=== PATIENT | female | born 1965 | race Caucasian/White ===

== ENCOUNTER 2025-06-30 11:13 | Outpatient (CLI) | payer MEDICAID ==
--- NOTE | 2025-06-30 15:36 | RADIOLOGY REPORT ---
Exam: MR MRI PELVIS History: DYSURIA, LLQ ABD PAIN,CYSTOCELE Comparison: None Technique: Multisequence multiplanar MRI images were obtained of the pelvis. Findings: Bladder: Unremarkable. Visualized bowel: Colonic diverticulosis. Pelvic organs: Hysterectomy. Lymphadenopathy: No evidence for pelvic lymphadenopathy. Vasculature: There is normal enhancement of the pelvic vasculature. Ascites: Absent. Musculoskeletal: The bone marrow signal is preserved. IMPRESSION: No acute or suspicious findings. No findings of cystocele.
== END 2025-06-30 23:59 | disposition home or self-care (01) ==
LOC: MRI02 11:13
PROVIDERS: ATTEND Family Medicine
DX: K57.30 Diverticulosis of large intestine without perforation or abscess without bleeding (principal); R30.0 Dysuria; R10.32 Left lower quadrant pain; N81.10 Cystocele, unspecified; Z90.710 Acquired absence of both cervix and uterus
CPT/HCPCS: 72195